=== PATIENT | female | born 1975 | race Caucasian/White ===

== ENCOUNTER 2018-10-23 09:58 | Emergency (ER) | payer OTHER ==
[2018-10-23] MEDS ORDERED: Tetan/Diph/Pertus SYR(Tdap)* 0.5 ML SYR(BOOSTRIX) use SYR IM ONE (12:22)
--- NOTE | 2018-10-23 12:26 | UC ---
Skin Complaint HPI - HPI Summary HPI Summary: Patient stepped on a nail yesterday, puncture hole to bottom of right foot. mild erythema and pain increased since yesterday - History of Current Complaint Time Seen by Provider: 10/23/18 12:17 Stated Complaint: RIGHT FOOT INJURY(STEPPED ON NAIL) Hx Obtained From: Patient Hx Last Menstrual Period: 09/27/12 ?: No Onset/Duration: Sudden Onset, Lasting Hours Skin Exposure Onset/Duration: Hours Ago Timing: Constant Onset Severity: Mild Current Severity: Mild Location: Discrete, Foot (Right) Character: Raised, Painful Aggravating Factor(s): Touch Alleviating Factor(s): Nothing Related History: Trauma - Allergy/Home Medications Allergies/Adverse Reactions: Allergies Allergy/AdvReac Type Severity Reaction Status Date / Time No Known Allergies Allergy Verified 10/09/12 08:42 PMH/Surg Hx/FS Hx/Imm Hx Previously Healthy: Yes - Family History Known Family History: Positive: Hypertension - Social History Substance Use Type: None Review of Systems All Other Systems Reviewed And Are Negative: Yes Skin: Positive: Other - puncture Is Patient Immunocompromised?: No Physical Exam Triage Information Reviewed: Yes Appearance: Well-Appearing, Well-Nourished, Pain Distress Vital Signs Reviewed: Yes Eye Exam: Normal ENT Exam: Normal Dental Exam: Normal Neck exam: Normal Respiratory Exam: Normal Cardiovascular Exam: Normal Abdominal Exam: Normal Bowel Sounds: Positive: Present Musculoskeletal Exam: Normal Neurological Exam: Normal Psychological Exam: Normal Skin: Positive: Other - punture wound to bottom of right foot, about 10 mm in diameter Course/Dx - Course Course Of Treatment: hx obtained, exam performed ,meds reviewed, treated with abx and educated on self care - Diagnoses Provider Diagnosis: Puncture wound of foot, right Discharge - Sign-Out/Discharge Documenting (check all that apply): Patient Departure All imaging exams completed and their final reports reviewed: No Studies - Discharge Plan Condition: Stable Disposition: HOME Prescriptions: Cephalexin CAP* [Keflex CAP*] 500 mg PO BID #10 cap Patient Education Materials: Puncture Wound (ED) Referrals: Hank Bolden MD [Primary Care Provider] - Additional Instructions: 1. soak daily in epsom salts for the next few days 2. Start the antibiotic if redness, pain swelling or drainage is present 3. follow up as needed. - Billing Disposition and Condition Condition: STABLE Disposition: Home
[2018-10-23 12:41] VITALS: BP 137/90
== END 2018-10-23 12:46 | disposition home or self-care (01) ==
LOC: UCCORT 09:58
DX: S91.331A Puncture wound without foreign body, right foot, initial encounter (principal); W45.0XXA Nail entering through skin, initial encounter; Y92.9 Unspecified place or not applicable; Z23 Encounter for immunization
CPT/HCPCS: 90471; 90715; 99202; G0463